=== PATIENT | female | born 1985 | race Caucasian/White ===

== ENCOUNTER 2018-03-09 11:33 | Emergency (ER) | payer OTHER ==
[~2018-03-09] VITALS: Ht 157.5 cm; Wt 56.7 kg
[2018-03-09 11:41] VITALS: TEMP 36.4; Ht 157.5 cm; Wt 56.7 kg
[2018-03-09] MEDS ORDERED: SODIUM CHLORIDE 0.9% 1000ML 2,000 ML IV STA (12:13)
[2018-03-09] MEDS ORDERED: FAMOTIDINE 20 MG TAB PO ONE (12:15)
--- NOTE | 2018-03-09 12:23 | EMERGENCY ROOM VISIT NOTE ---
History Report prepared by Delaney: Jovan Conrad Under the Supervision of: Dr. Irwin Sutton M.D. First contact with patient: 12:11 Chief Complaint: NAUSEA Stated Complaint: NAUSEA,CLAMY,MUSCLE TENSION,EYE TWITCHING History of Present Illness The patient is a 33 year old female who presents to the Emergency Room with complaints of nausea beginning this morning. The patient states that she was getting driven by a coworker when she asked her coworker to wool puller as the patient felt like she was going to vomit. She notes that her muscles started to tense up and that she felt lightheaded and dizzy on the way to the hospital. She also reports that yesterday she was unable to move her jaw. The patient states that she has had these occurrences before, but states that this time was worse than those times. She reports that she has nausea somewhat frequently but has never been diagnosed with GERD. The patient also reports that she is hypotensive at baseline. The patient states that all she ate today was a small breakfast with coffee. The patient states that she has a history of depression and anxiety and that she takes Wellbutrin and Affixer for. She states that she has been taking the Wellbutrin for months but that she just started taking the Affixer yesterday and states that she has only had 2 doses of it. The patient notes that she has had panic attacks in the past but has not had them since grad school a couple of years ago. She states that her symptoms today do not feel like a panic attack. She also notes that she is not experiencing palpitations. She also does not normally get periods because she has a hormonal IUD. Source of History: patient Onset: This morning Position: abdomen Quality: other (nausea) Timing: resolved Associated Symptoms: + weakness (dizziness) Note: additional symptom: tense muscles Review of Systems See HPI for pertinent positives and negatives. A total of ten systems were reviewed and were otherwise negative. Past Medical & Surgical Medical Problems: (1) Anxiety (2) Depression Family History Patient reports no known family medical history. 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 Oropharynx unremarkable. Mucous membranes are dry. EYES: Normal conjunctiva. Sclera non-icteric. NECK: Supple. No nuchal rigidity. FROM. No JVD. RESPIRATORY: Clear to auscultation. CARDIAC: Regular rate, normal rhythm. Extremities warm and well perfused. Pulses equal. ABDOMEN: Soft, non-distended. No tenderness to palpation. No rebound or guarding. No masses. RECTAL: Deferred. MUSCULOSKELETAL: Chest examination reveals no tenderness. The back is symmetrical on inspection without obvious abnormality. There is no CVA tenderness to palpation. No joint edema. LOWER EXTREMITIES: Calves are equal size bilaterally and non-tender. No edema. No discoloration. NEURO: Normal sensorium. No sensory or motor deficits noted. No lower extremity clonus. DTRs wnl. SKIN: No rash or jaundice noted. Medical Decision & Procedures Laboratory Results 03/09/18 12:10 Red Blood Count 4.39, Mean Corpuscular Volume 86.1, Mean Corpuscular Hemoglobin 30.3, Mean Corpuscular Hemoglobin Concent 35.2, Mean Platelet Volume 9.5, Neutrophils (%) (Auto) 82.7, Lymphocytes (%) (Auto) 11.4, Monocytes (%) (Auto) 5.0, Eosinophils (%) (Auto) 0.5, Basophils (%) (Auto) 0.2, Neutrophils # (Auto) 10.90, Lymphocytes # (Auto) 1.50, Monocytes # (Auto) 0.66, Eosinophils # (Auto) 0.06, Basophils # (Auto) 0.03 03/09/18 12:10 Test 03/09/18 12:10 03/09/18 12:30 White Blood Count 13.18 K/uL (4.8-10.8) Red Blood Count 4.39 M/uL (4.2-5.4) Hemoglobin 13.3 g/dL (12.0-16.0) Hematocrit 37.8 % (37-47) Mean Corpuscular Volume 86.1 fL (80-100) Mean Corpuscular Hemoglobin 30.3 pg (25-34) Mean Corpuscular Hemoglobin Concent 35.2 g/dl (32-36) Platelet Count 258 K/uL (130-400) Mean Platelet Volume 9.5 fL (7.4-10.4) Neutrophils (%) (Auto) 82.7 % Lymphocytes (%) (Auto) 11.4 % Monocytes (%) (Auto) 5.0 % Eosinophils (%) (Auto) 0.5 % Basophils (%) (Auto) 0.2 % Neutrophils # (Auto) 10.90 K/uL (1.4-6.5) Lymphocytes # (Auto) 1.50 K/uL (1.2-3.4) Monocytes # (Auto) 0.66 K/uL (0.11-0.59) Eosinophils # (Auto) 0.06 K/uL (0-0.5) Basophils # (Auto) 0.03 K/uL (0-0.2) RDW Standard Deviation 40.5 fL (36.4-46.3) RDW Coefficient of Variation 12.8 % (11.5-14.5) Immature Granulocyte % (Auto) 0.2 % Immature Granulocyte # (Auto) 0.03 K/uL (0.00-0.02) Anion Gap 7.0 mmol/L (3-11) Est Creatinine Clear Calc Drug Dose 98.3 ml/min Estimated GFR () 136.2 Estimated GFR (Non- 117.5 BUN/Creatinine Ratio 14.1 (10-20) Calcium Level 8.9 mg/dl (8.5-10.1) Phosphorus Level 2.2 mg/dl (2.5-4.9) Magnesium Level 2.0 mg/dl (1.8-2.4) Total Bilirubin 0.4 mg/dl (0.2-1) Direct Bilirubin 0.1 mg/dl (0-0.2) Aspartate Amino Transf (AST/SGOT) 13 U/L (15-37) Alanine Aminotransferase (ALT/SGPT) 19 U/L (12-78) Alkaline Phosphatase 40 U/L (45-117) Total Creatine Kinase 86 U/L (26-192) Total Protein 7.6 gm/dl (6.4-8.2) Albumin 4.5 gm/dl (3.4-5.0) Lipase 160 U/L (73-393) Human Chorionic Gonadotropin, Qual NEG (NEG) Urine Color DK YELLOW Urine Appearance CLEAR (CLEAR) Urine pH 5.5 (4.5-7.5) Urine Specific [place] 1.022 (1.000-1.030) Urine Protein NEG (NEG) Urine Glucose (UA) NEG (NEG) Urine Ketones 1+ (NEG) Urine Occult Blood NEG (NEG) Urine Nitrite NEG (NEG) Urine Bilirubin NEG (NEG) Urine Urobilinogen NEG (NEG) Urine Leukocyte Esterase SMALL (NEG) Urine WBC (Auto) 1-5 /hpf (0-5) Urine RBC (Auto) 0-4 /hpf (0-4) Urine Hyaline Casts (Auto) 1-5 /lpf (0-5) Urine Epithelial Cells (Auto) >30 /lpf (0-5) Urine Bacteria (Auto) NEG (NEG) Laboratory results reviewed by me Medications Administered Medications (Trade) Dose Ordered Sig/Cherelle Route Start Time Stop Time Status Last Admin Dose Admin Sodium Chloride 2,000 ml @ 999 mls/hr Q2H1M STAT IV 03/09/18 12:13 03/09/18 14:13 DC 03/09/18 12:30 999 MLS/HR Potassium/ Phosphorus/Sodium (Phospha 250 Neutral 155-852-130 Mg) 2 tab NOW STAT PO 03/09/18 14:31 03/09/18 14:34 DC 03/09/18 15:21 2 TAB ECG Per My Interpretation Indication: weakness Rate (beats per minute): 71 Rhythm: normal sinus Findings: no acute ischemic change, other (normal axis, normal intervals) ED Course 1212: The patient was evaluated in room C12A. A complete history and physical exam was performed. 1450: I reevaluated the patient. Discussed results and discharge instructions: She verbalized understanding and agreement. The patient is ready for discharge. Medical Decision I reviewed the patient's past medical history, medications, and the nursing notes as described above. Differential diagnosis: Etiologies such as benign positional vertigo, dehydration, hypovolemia, anemia, tumor, infection, hypoglycemia, electrolyte abnormalities, cardiac sources, intracerebral event, toxicologic, neurologic, as well as others were entertained. The patient is a 33-year-old woman with a past medical history of anxiety and depression on Wellbutrin and recently started on Lexapro as well who presents emergency department with episode of nausea/vomiting with associated lightheadedness and muscle spasms per hpi. On arrival the patient is fatigued appearing but no acute distress, afebrile stable vital signs. On exam the patient appears clinically dry. She is neurologically intact including normal cerebellar function with [id number], alternating palms, [id number]. No lower extremity clonus. DTRs wnl. WBC 13, nonspecific. Chemistry without evidence of acidosis. Potassium 3.4, phosphorus 2.2 and repleted. UA negative for infection. Patient improved after IV fluids, Pepcid. Unclear etiology the patient's symptoms at this time however possibly related to reflux/gastritis given that the patient reports a long history of GI sensitivity. However, adverse effects of her new Lexapro consider albeit unlikely, given lack of toxidrome on exam. Plan for PCP follow-up. Findings and plan for follow-up reviewed with patient. Patient agreeable and d/c'd per discharge instructions. Medication Reconcilliation Current Medication List: was personally reviewed by me Blood Pressure Screening Patient's blood pressure: Normal blood pressure Impression Primary Impression: Dizziness Additional Impression: Nausea Scribe Attestation The scribe's documentation has been prepared under my direction and personally reviewed by me in its entirety. I confirm that the note above accurately reflects all work, treatment, procedures, and medical decision making performed by me. Departure Information Dispostion Home / Self-Care Prescriptions Famotidine (PEPCID) 20 Mg Tab 20 MG PO BID for 7 Days, #14 TAB Prov: Irwin Sutton M.D. 03/09/18 Ondasetron Odt (ZOFRAN ODT) 4 Mg Tab 4 MG SL Q6H for Nausea, #10 TAB Prov: Irwin Sutton M.D. 03/09/18 Forms HOME CARE DOCUMENTATION FORM, IMPORTANT VISIT INFORMATION Patient Instructions ED Dehydration, ED GERD, ED Gastritis, [facility] Additional Instructions Please follow up with your primary care physician in the next 1-3 days for re- evaluation and to discuss your recent medication changes. The cause of your symptoms may be related to mild dehydration as well as reflux/ gastritis. However, it is also possible that it could be related to your new medication changes. Otherwise, your exam, EKG, and lab results did not show signs of an emergent condition at this time. Zofran as needed for nausea. Pepcid as needed for GI upset/acid reduction. Take a daily multi-vitamin. Drink plenty of fluids to ensure hydration. Return to the emergency department for worsening symptoms as described in the accompanying instructions. Problem Qualifiers
[2018-03-09 12:31] LABS: BASO % 0.2 %; BASO ABS # 0.03 K/uL (0-0.2); EOS % 0.5 %; EOS ABS # 0.06 K/uL (0-0.5); HEMATOCRIT 37.8 % (37-47); HEMOGLOBIN 13.3 g/dL (12.0-16.0); IG# 0.03 K/uL (0.00-0.02); LYMPH % 11.4 %; MEAN CELL VOLUME 86.1 fL (80-100); MEAN CORPUSCULAR HEMOGLOBIN 30.3 pg (25-34); MEAN CORPUSCULAR HGB CONC 35.2 g/dl (32-36); MEAN PLATELET VOLUME 9.5 fL (7.4-10.4); MONO ABS # 0.66 K/uL (0.11-0.59); NEUT % 82.7 %; PLATELET COUNT 258 K/uL (130-400); RED CELL DISTRIBUTION WIDTH CV 12.8 % (11.5-14.5); RED CELL DISTRIBUTION WIDTH SD 40.5 fL (36.4-46.3); WHITE BLOOD COUNT 13.18 K/uL (4.8-10.8)
[2018-03-09 12:50] LABS: ALBUMIN 4.5 gm/dl (3.4-5.0); CALCIUM 8.9 mg/dl (8.5-10.1); CREATININE 0.65 mg/dl (0.60-1.20); PHOSPHORUS 2.2 mg/dl (2.5-4.9); POTASSIUM 3.4 mmol/L (3.5-5.1); TOTAL PROTEIN 7.6 gm/dl (6.4-8.2)
[2018-03-09] MEDS ORDERED: ESCI1TAB6 PO (13:04)
[2018-03-09] MEDS ORDERED: IUD'IUD (13:04)
[2018-03-09] MEDS ORDERED: BUPR200T2 PO (13:04)
[2018-03-09] MEDS ORDERED: POT PHOSPHATE MONOBASIC W/ SOD TAB PO STA (14:31)
[2018-03-09] MEDS ORDERED: ONDA4TAB10 SL (14:35)
[2018-03-09] MEDS ORDERED: FAMO20TA9 PO (14:35)
[2018-03-09 15:33] VITALS: BP 97/68; PULSE 72; O2SAT 100
== END 2018-03-09 15:22 | disposition home or self-care (01) ==
LOC: C.EDB 11:35 → C.EDC 15:22
DX: R42 Dizziness and giddiness (principal); R11.0 Nausea; F41.9 Anxiety disorder, unspecified; F32.9 Major depressive disorder, single episode, unspecified